=== PATIENT | female | born 1965 | race African-American/Black ===

== ENCOUNTER 2017-01-12 08:40 | Emergency (ER) | payer OTHER ==
[~2017-01-12] VITALS: Ht 165.1 cm; Wt 109.0 kg
[2017-01-12] MEDS ORDERED: KETOROLAC 60MG/2ML VIAL IM ONE (10:00)
[2017-01-12] MEDS ORDERED: BENAZEPRIL 20MG TABLET PO ONE (10:15)
[2017-01-12 11:01] VITALS: BP 148/101
== END 2017-01-12 11:26 | disposition home or self-care (01) ==
LOC: ER 08:41
DX: M25.561 Pain in right knee (principal); I10 Essential (primary) hypertension
CPT/HCPCS: 73564; 96372; 99284; J1885; Z7610

== ENCOUNTER 2018-09-11 17:07 | Emergency (ER) | payer BC, OTHER ==
[~2018-09-11] VITALS: Ht 165.1 cm; Wt 103.0 kg
[2018-09-11] MEDS ORDERED: NITROGLYCERIN 0.4MG TABLET SL SL PRN (18:00)
[2018-09-11] MEDS ORDERED: ASPIRIN 81MG TABLET PO ONE (18:00)
[2018-09-11 20:36] LABS: BASOPHILS % 0.7 % (0.0-2.0); EOSINOPHILS % 1.1 % (0.0-5.0); HEMATOCRIT. 35.8 % (36.0-48.0); HEMOGLOBIN. 11.2 g/dL (12.0-16.0); LYMPHOCYTES % 24.6 % (20.0-50.0); MEAN CORPUSCULAR HEMOGLOBIN 18.5 pg (28.0-32.0); MONOCYTES % 6.9 % (2.0-8.0); NEUTROPHILS % 66.7 % (40.0-76.0); PLATELET 248 x1000/uL (130-400); RED BLOOD CELL COUNT 6.07 mill/uL (4.2-5.4); RED CELL DISTRIBUTION WIDTH 17.3 % (11.6-14.6)
[2018-09-11 20:41] LABS: CHLORIDE 104 mEq/L (98-107)
[2018-09-11 21:14] LABS: PLATELET ESTIMATE NORMAL
[2018-09-11 21:39] VITALS: BP 161/89
== END 2018-09-11 23:57 | disposition home or self-care (01) ==
LOC: ER 23:55
DX: R07.89 Other chest pain (principal); I16.1 Hypertensive emergency; I10 Essential (primary) hypertension; Z90.710 Acquired absence of both cervix and uterus; Z88.8 Allergy status to other drugs, medicaments and biological substances; Z98.890 Other specified postprocedural states
CPT/HCPCS: 36415; 71045; 83880; 84484; 99284

== ENCOUNTER 2020-03-17 11:03 | Emergency (ER) | payer BC, OTHER ==
[~2020-03-17] VITALS: Ht 162.6 cm; Wt 110.0 kg
[2020-03-17 11:10] VITALS: BP 165/93
== END 2020-03-17 12:40 | disposition home or self-care (01) ==
LOC: ER 11:03
DX: T14.8XXA Other injury of unspecified body region, initial encounter (principal); R21 Rash and other nonspecific skin eruption; X58.XXXA Exposure to other specified factors, initial encounter; Y93.9 Activity, unspecified; Y92.9 Unspecified place or not applicable; I10 Essential (primary) hypertension; Z90.710 Acquired absence of both cervix and uterus
CPT/HCPCS: 99281

== ENCOUNTER 2021-06-22 17:44 | Emergency (ER) | payer SELFPAY ==
[~2021-06-22] VITALS: Ht 165.1 cm; Wt 109.0 kg
[2021-06-22] MEDS ORDERED: FLUORESCEIN SODIUM 1MG/STRIP BOTHEYE ONE (19:15)
[2021-06-22] MEDS ORDERED: TETRACAINE 0.5% OPHTH DROPS 4ML LEFTEYE ONE (19:15)
[2021-06-22] MEDS ORDERED: ACETAMINOPHEN 325MG TABLET PO ONE (19:30)
[2021-06-22] MEDS: IBUPROFEN 600MG TABLET PO ONE ×2 (20:45→20:47)
[2021-06-22] MEDS ORDERED: IBUP-2029 MT (21:20)
[2021-06-22] MEDS ORDERED: CIPR2.5D13 LEFTEYE (21:21)
[2021-06-22 21:50] VITALS: BP 187/103
== END 2021-06-22 18:54 | disposition home or self-care (01) ==
LOC: ER 17:44
DX: H16.001 Unspecified corneal ulcer, right eye (principal); I10 Essential (primary) hypertension; Z90.710 Acquired absence of both cervix and uterus
CPT/HCPCS: 82962; 99284